=== PATIENT | male | born 1955 | race Caucasian/White ===

== ENCOUNTER 2018-11-19 10:42 | Inpatient (IN) ==
[2018-11-19] MEDS ORDERED: SODIUM CHLORIDE 0.9% 1000ML 1,000 ML IV SCH (11:00)
--- NOTE | 2018-11-19 11:01 | Emergency Department Note ---
Entered by Angela Hickey acting as a scribe for Oseas Valentine DO History of Present Illness General Chief complaint: Abdominal Pain Stated complaint: ABDOMINAL PAIN Source: patient History of Present Illness Onset (ago): hour(s) (last night) Location: abdomen Pain Consistency: + constant Maximum Pain Intensity: 6 Quality: + aching, + sharp and + other (abdominal pain) Associated symptoms: + other (Positive vomiting (3 times). Negative back pain, rectal bleeding, blood in his vomit. ) The patient is a 63 year old male who presents to the Emergency Room with complaints of constant abdominal pain beginning last night. He states after eating a salmon cake last night, he suddenly developed abdominal pain which he describes as an ache and sharp. At 2300 last night, he vomited 3 times. Pt denies any back pain, rectal bleeding, blood in his vomit. Home Medications Home Medications Medication Instructions Recorded Confirmed Type fluorouracil [Efudex] 1 applic TOPICAL BID 11/19/18 11/19/18 History Allergies Allergy/AdvReac Type Severity Reaction Status Date / Time Penicillins Allergy RASH Unverified 11/19/18 11:15 Past Med/Surg History Medical History Asthma Mild; not using any inhalers Family history non-contributory Prediabetes Surgical History H/O colonoscopy Family History Other Family history non-contributory Social History Current Living Situation: Spouse Other Information That Helps Us Care for You: No Feels Safe at Home: Yes Safety Concerns: Feels Safe At This Time Smoking Status: Never smoker Do You Dip or Chew Tobacco: No Hx Alcohol Use: No Hx Substance Use: No Beliefs That Will Affect Care: None Preferred Language: Swedish Communication Ability: Effective Crate Maker Required: No Review of Systems See HPI for pertinent positives & negatives. and A total of 10 systems reviewed and were otherwise negative Physical Exam Vital Signs Vital Signs - 24 hr 11/19/18 10:44 11/19/18 11:18 11/19/18 11:30 Temperature 36.3 C L Temperature Source Oral Sepsis Recent Fever Within 48 Hours No Sepsis Action Taken by Nursing No Action Required Pulse Rate Pulse Rate [Apical] Pulse Rate [Right Finger] 95 H Pulse Rhythm [Apical] Pulse Rhythm [Right Finger] Regular Respiratory Rate 18 20 Respiratory Effort / Characteristics Non-Labored Respiratory Depth Normal Normal Respiratory Pattern Regular Blood Pressure 146/88 H Blood Pressure [Left Arm] 136/86 Blood Pressure Mean 107 Blood Pressure Mean [Left Arm] 102 Blood Pressure Position Sitting Blood Pressure Position [Left Arm] Pulse Oximetry 97 98 100 Oxygen Delivery Method Room Air Room Air Room Air Oxygen Flow Rate 11/19/18 12:30 11/19/18 13:21 11/19/18 14:40 Temperature Temperature Source Sepsis Recent Fever Within 48 Hours Sepsis Action Taken by Nursing Pulse Rate 105 H Pulse Rate [Apical] Pulse Rate [Right Finger] 101 H 102 H Pulse Rhythm [Apical] Pulse Rhythm [Right Finger] Respiratory Rate 18 18 26 H Respiratory Effort / Characteristics Non-Labored Non-Labored Respiratory Depth Normal Normal Respiratory Pattern Regular Blood Pressure 139/89 Blood Pressure [Left Arm] 142/84 H 149/83 H Blood Pressure Mean Blood Pressure Mean [Left Arm] 103 105 Blood Pressure Position Blood Pressure Position [Left Arm] Pulse Oximetry 97 96 97 Oxygen Delivery Method Room Air Room Air Room Air Oxygen Flow Rate 11/19/18 16:23 11/19/18 16:30 11/19/18 16:40 Temperature 36.8 C Temperature Source Temporal Artery Scan Sepsis Recent Fever Within 48 Hours Sepsis Action Taken by Nursing Pulse Rate Pulse Rate [Apical] 96 H 85 90 Pulse Rate [Right Finger] Pulse Rhythm [Apical] Regular Regular Regular Pulse Rhythm [Right Finger] Respiratory Rate 16 14 17 Respiratory Effort / Characteristics Non-Labored Spontaneous Non-Labored Spontaneous Non-Labored Spontaneous Respiratory Depth Normal Normal Normal Respiratory Pattern Regular Regular Regular Blood Pressure Blood Pressure [Left Arm] 153/83 H 151/79 H 139/80 Blood Pressure Mean Blood Pressure Mean [Left Arm] 106 103 99 Blood Pressure Position Blood Pressure Position [Left Arm] Lying Lying Lying Pulse Oximetry 100 100 100 Oxygen Delivery Method Oxymask Oxymask Oxymask Oxygen Flow Rate 5 5 5 11/19/18 16:50 11/19/18 17:05 11/19/18 17:15 Temperature 36.9 C 37.8 C H Temperature Source Oral Oral Sepsis Recent Fever Within 48 Hours Sepsis Action Taken by Nursing Pulse Rate Pulse Rate [Apical] 92 H 94 H Pulse Rate [Right Finger] 103 H Pulse Rhythm [Apical] Regular Regular Pulse Rhythm [Right Finger] Respiratory Rate 16 18 16 Respiratory Effort / Characteristics Non-Labored Spontaneous Non-Labored Spontaneous Non-Labored Spontaneous Respiratory Depth Normal Normal Normal Respiratory Pattern Regular Regular Regular Blood Pressure Blood Pressure [Left Arm] 137/79 145/85 H 130/77 Blood Pressure Mean Blood Pressure Mean [Left Arm] 98 105 94 Blood Pressure Position Blood Pressure Position [Left Arm] Lying Lying Lying Pulse Oximetry 99 98 94 Oxygen Delivery Method Nasal Cannula Nasal Cannula Room Air Oxygen Flow Rate 2 2 11/19/18 17:45 Temperature Temperature Source Sepsis Recent Fever Within 48 Hours Sepsis Action Taken by Nursing Pulse Rate Pulse Rate [Apical] Pulse Rate [Right Finger] 97 H Pulse Rhythm [Apical] Pulse Rhythm [Right Finger] Respiratory Rate 19 Respiratory Effort / Characteristics Respiratory Depth Normal Respiratory Pattern Blood Pressure Blood Pressure [Left Arm] 131/78 Blood Pressure Mean Blood Pressure Mean [Left Arm] 95 Blood Pressure Position Blood Pressure Position [Left Arm] Lying Pulse Oximetry 95 Oxygen Delivery Method Room Air Oxygen Flow Rate GENERAL: Patient is awake alert in no acute distress patient is resting comfortably and showing no signs of anxiety EYES: The conjunctivae are clear. The pupils are round and reactive. EARS, NOSE, MOUTH AND THROAT: The nose is without any evidence of any deformity. Mucous membranes are moist tongue is midline NECK: The neck is nontender and supple. RESPIRATORY: Normal respiratory effort is noted there is no evidence of wheezing rhonchi or rales CARDIOVASCULAR: Regular rate and rhythm noted there no murmurs rubs or gallops normal S1 normal S2 GASTROINTESTINAL: The abdomen is mildly distended. There is right lower quadrant tenderness to palpation. Mild guarding is noted to palpation. No hernias were appreciated. BACK: No midline tenderness or or step-off noted range of motion in flexion extension as well as rotation no signs of muscle spasm noted MUSCULOSKELETAL/EXTREMITIES: There is no evidence of gross deformity full range of motion is noted in the hips and shoulders SKIN: There is no obvious evidence of any rash. There are no petechiae, pallor or cyanosis noted. NEUROLOGIC: Patient is awake alert and oriented x3 strength is symmetric patellar reflexes are 2+ bilaterally Course 1052: Past medical records reviewed. The patient was evaluated in room C11, and a complete history and physical examination were performed. 1220: I checked on the patient at this time and discussed their findings. 1228: I reviewed the patient's case with ABDIAZIZ Farrell working on the service of [facility]. He will evaluate the patient for further management. Consultations Consultation #1: I reviewed the patient's case with ABDIAZIZ Farrell working on the service of [facility]. He will evaluate the patient for further management. Time: 12:28 Administered Medications Ioversol (Optiray 320 125ml) 119 ml IV ONCE PRN PRN Reason: Interaction Checking Stop: 11/23/18 11:37 Last Admin: 11/19/18 11:39 Dose: 119 ml Discontinued Medications Acetaminophen (Ofirmev) Confirm Administered Dose 1,000 mg IV .STK-MED ONE Stop: 11/19/18 17:00 Last Admin: 11/19/18 18:06 Dose: Not Given Bupivacaine HCl (Marcaine 0.5% Mpf) Confirm Administered Dose 30 ml .ROUTE .STK- MED ONE Stop: 11/19/18 14:13 Last Admin: 11/19/18 15:56 Dose: 7 ml Sodium Chloride (Nss 1000ml) 1,000 mls @ 999 mls/hr IV .Q1H1M MATT Stop: 11/19/18 12:00 Last Infusion: 11/19/18 12:25 Dose: 0 mls/hr Admin: 11/19/18 11:24 Dose: 999 mls/hr Cefoxitin Sodium (Mefoxin) 2,000 mg in 60 mls @ 100 mls/hr IV NOW STA Stop: 11/19/18 12:51 Last Infusion: 11/19/18 13:23 Dose: 0 mls/hr Admin: 11/19/18 12:47 Dose: 100 mls/hr Sodium Chloride (Nss 1000ml) 1,000 mls @ 999 mls/hr IV .Q1H1M ONE Stop: 11/19/18 13:27 Last Infusion: 11/19/18 13:51 Dose: 0 mls/hr Admin: 11/19/18 12:47 Dose: 999 mls/hr Acetaminophen (Ofirmev) 1,000 mg in 100 mls @ 400 mls/hr IV NOW ONE Stop: 11/19/18 16:16 Last Infusion: 11/19/18 18:06 Dose: 0 mls/hr Admin: 11/19/18 17:02 Dose: 400 mls/hr Medical Decision Making Differential Diagnosis Differential diagnosis: Etiologies such as appendicitis, diverticulitis, PUD, biliary pathology, UTI, pancreatitis, obstruction, mesenteric ischemia, aortic pathology, infections, inflammatory bowel disease, renal colic, as well as others were entertained. Medical Records Attestation: I reviewed the patient's medical records. Home Medications Current Medication List: was personally reviewed by me Laboratory Data Attestation: I reviewed the patient's lab results. Result diagrams: 11/19/18 11:15 11/19/18 11:15 Lab Results 11/19/18 11/19/18 11/19/18 Range/Units 11:10 11:15 11:15 WBC 12.36 H (4.8-10.8) K/uL RBC 4.84 (4.7-6.1) M/uL Hgb 15.0 (14.0-18.0) g/dL POC Hgb (14.0-18.0) g/dl Hct 42.7 (42-52) % POC Hct (42-52) % MCV 88.2 (80-100) fL MCH 31.0 (25-34) pg MCHC 35.1 (32-36) g/dL RDW Std Deviation 40.0 (36.4-46.3) fL RDW Coeff of Ella 12.4 (11.5-14.5) % Plt Count 262 (130-400) K/uL MPV 9.1 (7.4-10.4) fL Immature Gran % (Auto) 0.2 % Neut % (Auto) 88.9 % Lymph % (Auto) 5.7 % [place] % (Auto) 5.2 % Eos % (Auto) 0.0 % Baso % (Auto) 0.0 % Immature Gran # (Auto) 0.03 H (0.00-0.02) K/uL Neut # (Auto) 10.99 H (1.4-6.5) K/uL Lymph # (Auto) 0.70 L (1.2-3.4) K/uL [place] # (Auto) 0.64 H (0.11-0.59) K/uL Eos # (Auto) 0.00 (0-0.5) K/uL Baso # (Auto) 0.00 (0-0.2) K/uL PT (9.0-12.0) Seconds INR (0.9-1.1) APTT (21.0-31.0) Seconds PTT Ratio POC Sodium (135-144) mEq/L Sodium 132 L (136-145) mmol/L POC Potassium (3.3-5.0) mEq/L Potassium 3.8 (3.5-5.1) mmol/L POC Chloride (101-112) mEq/L Chloride 95 L (98-107) mmol/L Carbon Dioxide 28 (21-32) mmol/L POC Total CO2 (24-31) mEq/l Anion Gap 9.0 (3-11) POC Anion Gap (16-25) mmol/L POC BUN (7-18) mg/dl BUN 17 (7-18) mg/dl Creatinine 1.10 (0.6-1.4) mg/dl POC Creatinine (0.6-1.3) mg/dl Est Cr Clr Drug Dosing 75.4 ml/min Est GFR ( Amer) 82.4 Est GFR (Non-Af Amer) 71.1 BUN/Creatinine Ratio 15.3 (10-20) Glucose 159 H (70-99) mg/dl POC Glucose (70-99) POC Glucose (other) (70-99) mg/dl Calcium 10.0 (8.5-10.1) mg/dl POC Ioniz Calcium Joanna (1.12-1.32) mmol/l Total Bilirubin 0.7 (0.2-1) mg/dl AST 15 (15-37) U/L ALT 30 (12-78) U/L Alkaline Phosphatase 88 (45-117) U/L Troponin I < 0.015 (0-0.045) ng/ml Total Protein 9.4 H (6.4-8.2) gm/dl Albumin 4.7 (3.4-5.0) gm/dl Globulin 4.7 H (2.5-4.0) gm/dl Albumin/Globulin Ratio 1.0 (0.9-2) Lipase 68 L (73-393) U/L Urine Color Urine Appearance (Clear) Urine pH (4.5-7.5) Ur Specific [place] (1.000-1.030) Urine Protein (Negative) Urine Glucose (UA) (Negative) Urine Ketones (Negative) Urine Blood (Negative) Urine Nitrite (Negative) Urine Bilirubin (Negative) Urine Urobilinogen (Negative) Ur Leukocyte Esterase (Negative) Urine WBC (Auto) (0-5) /hpf Urine RBC (Auto) (0-4) /hpf U Hyaline Cast (Auto) (0-5) /lpf U Epithel Cells (Auto) (0-5) /lpf Urine Bacteria (Auto) (Negative) Hepatitis C Ab Screen Neg (Neg) 11/19/18 11/19/18 11/19/18 Range/Units 11:18 11:24 12:05 WBC (4.8-10.8) K/uL RBC (4.7-6.1) M/uL Hgb (14.0-18.0) g/dL POC Hgb 15.3 (14.0-18.0) g/dl Hct (42-52) % POC Hct 45 (42-52) % MCV (80-100) fL MCH (25-34) pg MCHC (32-36) g/dL RDW Std Deviation (36.4-46.3) fL RDW Coeff of Ella (11.5-14.5) % Plt Count (130-400) K/uL MPV (7.4-10.4) fL Immature Gran % (Auto) % Neut % (Auto) % Lymph % (Auto) % [place] % (Auto) % Eos % (Auto) % Baso % (Auto) % Immature Gran # (Auto) (0.00-0.02) K/uL Neut # (Auto) (1.4-6.5) K/uL Lymph # (Auto) (1.2-3.4) K/uL [place] # (Auto) (0.11-0.59) K/uL Eos # (Auto) (0-0.5) K/uL Baso # (Auto) (0-0.2) K/uL PT 10.7 (9.0-12.0) Seconds INR 1.1 (0.9-1.1) APTT 27.1 (21.0-31.0) Seconds PTT Ratio 1.0 POC Sodium 137 (135-144) mEq/L Sodium (136-145) mmol/L POC Potassium 3.9 (3.3-5.0) mEq/L Potassium (3.5-5.1) mmol/L POC Chloride 96 L (101-112) mEq/L Chloride (98-107) mmol/L Carbon Dioxide (21-32) mmol/L POC Total CO2 27 (24-31) mEq/l Anion Gap (3-11) POC Anion Gap 18.0 (16-25) mmol/L POC BUN 17 (7-18) mg/dl BUN (7-18) mg/dl Creatinine (0.6-1.4) mg/dl POC Creatinine 0.9 (0.6-1.3) mg/dl Est Cr Clr Drug Dosing ml/min Est GFR ( Amer) Est GFR (Non-Af Amer) BUN/Creatinine Ratio (10-20) Glucose (70-99) mg/dl POC Glucose (70-99) POC Glucose (other) 169 H (70-99) mg/dl Calcium (8.5-10.1) mg/dl POC Ioniz Calcium Joanna 1.15 (1.12-1.32) mmol/l Total Bilirubin (0.2-1) mg/dl AST (15-37) U/L ALT (12-78) U/L Alkaline Phosphatase (45-117) U/L Troponin I (0-0.045) ng/ml Total Protein (6.4-8.2) gm/dl Albumin (3.4-5.0) gm/dl Globulin (2.5-4.0) gm/dl Albumin/Globulin Ratio (0.9-2) Lipase (73-393) U/L Urine Color Yellow Urine Appearance Clear (Clear) Urine pH 5.5 (4.5-7.5) Ur Specific [place] > 1.045 H (1.000-1.030) Urine Protein 1+ H (Negative) Urine Glucose (UA) Negative (Negative) Urine Ketones 3+ H (Negative) Urine Blood 2+ H (Negative) Urine Nitrite Negative (Negative) Urine Bilirubin Negative (Negative) Urine Urobilinogen Negative (Negative) Ur Leukocyte Esterase Negative (Negative) Urine WBC (Auto) 1-5 (0-5) /hpf Urine RBC (Auto) 5-10 H (0-4) /hpf U Hyaline Cast (Auto) 1-5 (0-5) /lpf U Epithel Cells (Auto) 0-5 (0-5) /lpf Urine Bacteria (Auto) Negative (Negative) Hepatitis C Ab Screen (Neg) 11/19/18 Range/Units 18:30 WBC (4.8-10.8) K/uL RBC (4.7-6.1) M/uL Hgb (14.0-18.0) g/dL POC Hgb (14.0-18.0) g/dl Hct (42-52) % POC Hct (42-52) % MCV (80-100) fL MCH (25-34) pg MCHC (32-36) g/dL RDW Std Deviation (36.4-46.3) fL RDW Coeff of Ella (11.5-14.5) % Plt Count (130-400) K/uL MPV (7.4-10.4) fL Immature Gran % (Auto) % Neut % (Auto) % Lymph % (Auto) % [place] % (Auto) % Eos % (Auto) % Baso % (Auto) % Immature Gran # (Auto) (0.00-0.02) K/uL Neut # (Auto) (1.4-6.5) K/uL Lymph # (Auto) (1.2-3.4) K/uL [place] # (Auto) (0.11-0.59) K/uL Eos # (Auto) (0-0.5) K/uL Baso # (Auto) (0-0.2) K/uL PT (9.0-12.0) Seconds INR (0.9-1.1) APTT (21.0-31.0) Seconds PTT Ratio POC Sodium (135-144) mEq/L Sodium (136-145) mmol/L POC Potassium (3.3-5.0) mEq/L Potassium (3.5-5.1) mmol/L POC Chloride (101-112) mEq/L Chloride (98-107) mmol/L Carbon Dioxide (21-32) mmol/L POC Total CO2 (24-31) mEq/l Anion Gap (3-11) POC Anion Gap (16-25) mmol/L POC BUN (7-18) mg/dl BUN (7-18) mg/dl Creatinine (0.6-1.4) mg/dl POC Creatinine (0.6-1.3) mg/dl Est Cr Clr Drug Dosing ml/min Est GFR ( Amer) Est GFR (Non-Af Amer) BUN/Creatinine Ratio (10-20) Glucose (70-99) mg/dl POC Glucose 186 H (70-99) POC Glucose (other) (70-99) mg/dl Calcium (8.5-10.1) mg/dl POC Ioniz Calcium Joanna (1.12-1.32) mmol/l Total Bilirubin (0.2-1) mg/dl AST (15-37) U/L ALT (12-78) U/L Alkaline Phosphatase (45-117) U/L Troponin I (0-0.045) ng/ml Total Protein (6.4-8.2) gm/dl Albumin (3.4-5.0) gm/dl Globulin (2.5-4.0) gm/dl Albumin/Globulin Ratio (0.9-2) Lipase (73-393) U/L Urine Color Urine Appearance (Clear) Urine pH (4.5-7.5) Ur Specific [place] (1.000-1.030) Urine Protein (Negative) Urine Glucose (UA) (Negative) Urine Ketones (Negative) Urine Blood (Negative) Urine Nitrite (Negative) Urine Bilirubin (Negative) Urine Urobilinogen (Negative) Ur Leukocyte Esterase (Negative) Urine WBC (Auto) (0-5) /hpf Urine RBC (Auto) (0-4) /hpf U Hyaline Cast (Auto) (0-5) /lpf U Epithel Cells (Auto) (0-5) /lpf Urine Bacteria (Auto) (Negative) Hepatitis C Ab Screen (Neg) Imaging Data Radiologist's Impression: Radiology results as stated below per my review and the radiologist's interpretation: ABDOMEN AND PELVIS CT WITH IV CONTRAST CT DOSE: 338.46 mGy.cm HISTORY: Right lower quadrant abdominal pain. TECHNIQUE: Multiaxial CT images of the abdomen and pelvis were performed following the use of intravenous contrast. A dose lowering technique was utilized adhering to the principles of ALARA. COMPARISON STUDY: None. FINDINGS: The lung bases are clear. No pneumoperitoneum. No pneumatosis. No fractures within the visualized osseous structures. No hepatic or splenic masses. The adrenal glands, pancreas, and kidneys are unremarkable. No ureteral stones. No hydronephrosis. The bladder is not well-distended. No retroperitoneal lymphadenopathy. Normal caliber abdominal aorta. The gallbladder is mildly distended. Trace pericholecystic fluid. Mild bladder wall thickening is likely due to underdistention. No bowel wall thickening or obstruction. Normal appendix. IMPRESSION: 1. Distended gallbladder with trace pericholecystic fluid. This is nonspecific but could represent acute cholecystitis or underlying hepatic pathology. Clinical correlation recommended as well as correlation with LFTs. 2. No bowel wall thickening or obstruction. 3. Normal appendix. 4. Mild bladder wall thickening. This is likely due to underdistention. Recommend correlation with urinalysis. Electronically signed by: Ethan Pascal M.D. 11/19/2018 12:13 PM XR chest 1V portable HISTORY: Generalized abdominal pain COMPARISON: None. FINDINGS: The lungs are clear. Cardiac silhouette is normal in size. No pleural effusions. No pneumothorax. IMPRESSION: No acute process. Electronically signed by: Ethan Pascal M.D. 11/19/2018 11:41 AM ECG Data Attestation: I personally reviewed and interpreted this ECG as follows: Indication: abdominal pain Rate (beats per minute): 86 Rhythm: normal sinus Findings: + other (inferior ST abnormalities); no ectopy Comparison ECG Date: no prior available Blood Pressure Blood Pressure Findings: Elevated blood pressure Blood Pressure Disposition: elevated BP felt to be situational MDM Narrative The patient is a 63-year-old male who presented to the emergency department with abdominal pain. The patient complained mostly of upper abdominal pain but on physical exam appear to be right lower quadrant. The patient's pain began after eating food. I discussed the patient's laboratory and radiographic studies with him. He did not wish to have any pain medication but was treated with IV fluids and IV antibiotics. Radiographic studies did reveal signs of cholecystitis. The patient's white blood cell count was elevated. For this reason I discussed his case with the on-call [facility] hospitalist group. They have agreed to evaluate the patient in the emergency department for further management and disposition. Impression & Plan Cholecystitis Discharge Plan Visit Data *Final* Discharge Date/Time: 11/19/18 14:40 Chief Complaint: Abdominal Pain Stated Complaint: ABDOMINAL PAIN ED Provider: Oseas Valentine Discharge Problem: Cholecystitis Patient Disposition: Still a Patient Discharge Instructions Interventions: ED Discharge Assessment Last Done: 11/19/18 14:40 The scribe's documentation has been prepared under my direction and personally reviewed by me in its entirety. I confirm that the note above accurately reflects all work, treatment, procedures, and medical decision making performed by me.
[2018-11-19 11:27] LABS: Hematocrit (blood only) 42.7 % (42-52); Immature Granulocytes # (auto) 0.03 K/uL (0.00-0.02); Immature Granulocytes % (auto) 0.2 %; Lymphocytes % (auto) 5.7 %; Mean Corpuscular Hgb Conc 35.1 g/dL (32-36); Mean Corpuscular Volume 88.2 fL (80-100); Mean Platelet Volume 9.1 fL (7.4-10.4); Monocytes # (auto) 0.64 K/uL (0.11-0.59); Monocytes % (auto) 5.2 %; Neutrophils # (auto) 10.99 K/uL (1.4-6.5); Neutrophils % (auto) 88.9 %; Platelet Count 262 K/uL (130-400); RDW Coefficient of Variation 12.4 % (11.5-14.5); Red Blood Count 4.84 M/uL (4.7-6.1); White Blood Count 12.36 K/uL (4.8-10.8)
[2018-11-19 11:36] LABS: iSTAT Hemoglobin 15.3 g/dl (14.0-18.0); iSTAT Ionized Calcium 1.15 mmol/l (1.12-1.32)
[2018-11-19] MEDS ORDERED: OPTIRAY 320 125ml IV PRN (11:38)
--- NOTE | 2018-11-19 11:43 | XRay Report ---
XR chest 1V portable HISTORY: Generalized abdominal pain COMPARISON: None. FINDINGS: The lungs are clear. Cardiac silhouette is normal in size. No pleural effusions. No pneumot horax. IMPRESSION: No acute process. Electronically signed by: Ethan Pascal M.D. 11/19/2018 11:41 AM
[2018-11-19 11:47] LABS: Alanine Aminotransferase 30 U/L (12-78); Albumin Level 4.7 gm/dl (3.4-5.0); Aspartate Aminotransferase 15 U/L (15-37); BUN Creatinine Ratio 15.3 (10-20); Blood Urea Nitrogen 17 mg/dl (7-18); Carbon Dioxide 28 mmol/L (21-32); Chloride 95 mmol/L (98-107); Creatinine Clr Calc Pharmacy 75.4 ml/min; Est GFR (African American) 82.4; Est GFR (Non-African American) 71.1; Glucose 159 mg/dl (70-99); Potassium 3.8 mmol/L (3.5-5.1); Sodium 132 mmol/L (136-145)
[2018-11-19 11:52] LABS: Alkaline Phosphatase 88 U/L (45-117); Bilirubin,Total 0.7 mg/dl (0.2-1); Globulin 4.7 gm/dl (2.5-4.0); Total Protein 9.4 gm/dl (6.4-8.2); Troponin I < 0.015 ng/ml (0-0.045)
--- NOTE | 2018-11-19 12:15 | CT Scan Report ---
ABDOMEN AND PELVIS CT WITH IV CONTRAST CT DOSE: 338.46 mGy.cm HISTORY: Right lower quadrant abdominal pain. TECHNIQUE: Multiaxial CT images of the abdomen and pelvis were performed following the use of intrave nous contrast. A dose lowering technique was utilized adhering to the principles of ALARA. COMPARISON STUDY: None. FINDINGS: The lung bases are clear. No pneumoperitoneum. No pneumatosis. No fractures within the visu alized osseous structures. No hepatic or splenic masses. The adrenal glands, pancreas, and kidneys ar e unremarkable. No ureteral stones. No hydronephrosis. The bladder is not well-distended. No retroper itoneal lymphadenopathy. Normal caliber abdominal aorta. The gallbladder is mildly distended. Trace p ericholecystic fluid. Mild bladder wall thickening is likely due to underdistention. No bowel wall th ickening or obstruction. Normal appendix. IMPRESSION: 1. Distended gallbladder with trace pericholecystic fluid. This is nonspecific but could represent ac [place] cholecystitis or underlying hepatic pathology. Clinical correlation recommended as well as correl ation with LFTs. 2. No bowel wall thickening or obstruction. 3. Normal appendix. 4. Mild bladder wall thickening. This is likely due to underdistention. Recommend correlation with ur inalysis. Electronically signed by: Ethan Pascal M.D. 11/19/2018 12:13 PM
[2018-11-19] MEDS ORDERED: cefOXitin 2,000 MG/60 ML BAG IV STA (12:16)
[2018-11-19 12:23] LABS: Appearance Urine Clear (Clear); Bacteria Urine Automated Negative (Negative); Bilirubin Urine Negative (Negative); Color Urine Yellow; Epithelial Cell Urine Auto 0-5 /lpf (0-5); Glucose Urine UA Negative (Negative); Leukocyte Esterase Urine Negative (Negative); Nitrite Urine Negative (Negative); Protein Urine 1+ (Negative); Specific Gravity Urine > 1.045 (1.000-1.030); Urobilinogen Urine Negative (Negative); pH Urine 5.5 (4.5-7.5)
[2018-11-19 12:25] LABS: Ketones Urine 3+ (Negative)
[2018-11-19] MEDS ORDERED: SODIUM CHLORIDE 0.9% 1000ML 1,000 ML IV ONE (12:27)
--- NOTE | 2018-11-19 14:03 | History & Physical Report ---
Date of Service November 19, 2018 Assessment & Plan (1) Epigastric pain: Patient presented with epigastric pain since midnight last night One episode of nausea and vomiting last night with no evidence of hematemesis No hematochezia, melena Most likely secondary to acute cholecystitis -see below (2) Cholecystitis: General surgery consulted -I spoke with Dr. Marshall who will evaluate the patient Keep the patient n.p.o. for now Start ciprofloxacin and Flagyl IV Repeat labs daily (3) Hyperglycemia: Patient has ketones and trace blood in his urine BSG is elevated at 159 Patient reports history of prediabetes with no insulin or oral control prescribed Check a hemoglobin A1c Initiate NovoLog sliding scale insulin Follow BSG's before meals at bedtime We will not start basal insulin at this time as patient will be n.p.o. for consideration of acute cholecystectomy (4) DVT prophylaxis: No chemical prophylaxis at this time as patient most likely will be considered for cholecystectomy Teds SCDs I spoke with Dr. Pete regarding this patient. Please refer to his addendum for further recommendations. History of Present Illness Chief Complaint: Epigastric pain since midnight last night Primary Care Provider: Casey Richardson Attending: Dr. Pete This is a 63-year-old male who follows with Dr. Fleming who has no significant past medical history. He was a one-time diagnosed with prediabetes but this is been diet controlled and he takes no medication for this at all. 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 He has no pulmonary or cardiac history. He has no prior hospitalizations. He does have a history of melanoma which is followed by dermatology and is currently in remission. He is a lifelong non-smoker and consumes no alcohol. The patient reports that he had epigastric pain last night around midnight. He had one episode of nausea and vomiting which was self-limited. This morning the pain persisted so he had his nephew drive him to the emergency department. CT scan of the abdomen and pelvis shows an acute cholecystitis and stool throughout the colon. Patient does report that he has a bowel movement at least daily around 9 or 930 each morning without any bowel regimen. He often will have a second bowel movement later in the day. He has never had bowel obstruction or other comorbid disease. He has no other acute complaints today other than abdominal pain. Blood pressure is slightly elevated with systolic pressure of 140 and heart rate is slightly elevated at 103. This is most likely secondary to pain as blood pressure is typically around 111 systolically at the doctor's office. Patient has no chest pain or shortness of breath and no other problems. Allergies Allergy/AdvReac Type Severity Reaction Status Date / Time Penicillins Allergy RASH Unverified 11/19/18 11:15 Home Medications Home Medications Medication Instructions Recorded Confirmed Type fluorouracil [Efudex] 1 applic TOPICAL BID 11/19/18 11/19/18 History Past Med/Surg History Medical History Asthma Mild; not using any inhalers Family history non-contributory Prediabetes Surgical History H/O colonoscopy Family History Other Family history non-contributory Social History Current Living Situation: Spouse Other Information That Helps Us Care for You: No Feels Safe at Home: Yes Safety Concerns: Feels Safe At This Time Smoking Status: Never smoker Do You Dip or Chew Tobacco: No Hx Alcohol Use: No Hx Substance Use: No Beliefs That Will Affect Care: None Preferred Language: Frisian Communication Ability: Effective Line 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 Pupils equal and reactive to light NOSE: No evidence of epistaxis MOUTH: No lesions or candidiasis NECK: Supple. LUNGS: CTA B/L, no wheezes, rales or rhonchi HEART: Regular, rate controlled. No appreciation of murmur or ectopy. ABDOMEN: Soft, ND, BS Present. Rebound tenderness particularly in the right upper quadrant. EXTREMITIES: No LE edema, pedal pulses intact NEURO: A&OX3 Results & Data Laboratory Results 11/19/18 11/19/18 11/19/18 11:15 11:15 11:24 WBC 12.36 H RBC 4.84 Hgb 15.0 POC Hgb 15.3 Hct 42.7 POC Hct 45 MCV 88.2 MCH 31.0 MCHC 35.1 RDW Std Deviation 40.0 RDW Coeff of Ella 12.4 Plt Count 262 MPV 9.1 Immature Gran % (Auto) 0.2 Neut % (Auto) 88.9 Lymph % (Auto) 5.7 Freestone % (Auto) 5.2 Eos % (Auto) 0.0 Baso % (Auto) 0.0 Immature Gran # (Auto) 0.03 H Neut # (Auto) 10.99 H Lymph # (Auto) 0.70 L Freestone # (Auto) 0.64 H Eos # (Auto) 0.00 Baso # (Auto) 0.00 POC Sodium 137 Sodium 132 L POC Potassium 3.9 Potassium 3.8 POC Chloride 96 L Chloride 95 L Carbon Dioxide 28 POC Total CO2 27 Anion Gap 9.0 POC Anion Gap 18.0 POC BUN 17 BUN 17 Creatinine 1.10 POC Creatinine 0.9 Est Cr Clr Drug Dosing 75.4 Est GFR ( Amer) 82.4 Est GFR (Non-Af Amer) 71.1 BUN/Creatinine Ratio 15.3 Glucose 159 H POC Glucose (other) 169 H Calcium 10.0 POC Ioniz Calcium Joanna 1.15 Total Bilirubin 0.7 AST 15 ALT 30 Alkaline Phosphatase 88 Troponin I < 0.015 Total Protein 9.4 H Albumin 4.7 Globulin 4.7 H Albumin/Globulin Ratio 1.0 Lipase 68 L Urine Color Urine Appearance Urine pH Ur Specific Newton Urine Protein Urine Glucose (UA) Urine Ketones Urine Blood Urine Nitrite Urine Bilirubin Urine Urobilinogen Ur Leukocyte Esterase Urine WBC (Auto) Urine RBC (Auto) U Hyaline Cast (Auto) U Epithel Cells (Auto) Urine Bacteria (Auto) 11/19/18 12:05 WBC RBC Hgb POC Hgb Hct POC Hct MCV MCH MCHC RDW Std Deviation RDW Coeff of Ella Plt Count MPV Immature Gran % (Auto) Neut % (Auto) Lymph % (Auto) Freestone % (Auto) Eos % (Auto) Baso % (Auto) Immature Gran # (Auto) Neut # (Auto) Lymph # (Auto) Freestone # (Auto) Eos # (Auto) Baso # (Auto) POC Sodium Sodium POC Potassium Potassium POC Chloride Chloride Carbon Dioxide POC Total CO2 Anion Gap POC Anion Gap POC BUN BUN Creatinine POC Creatinine Est Cr Clr Drug Dosing Est GFR ( Amer) Est GFR (Non-Af Amer) BUN/Creatinine Ratio Glucose POC Glucose (other) Calcium POC Ioniz Calcium Joanna Total Bilirubin AST ALT Alkaline Phosphatase Troponin I Total Protein Albumin Globulin Albumin/Globulin Ratio Lipase Urine Color Yellow Urine Appearance Clear Urine pH 5.5 Ur Specific Newton > 1.045 H Urine Protein 1+ H Urine Glucose (UA) Negative Urine Ketones 3+ H Urine Blood 2+ H Urine Nitrite Negative Urine Bilirubin Negative Urine Urobilinogen Negative Ur Leukocyte Esterase Negative Urine WBC (Auto) 1-5 Urine RBC (Auto) 5-10 H U Hyaline Cast (Auto) 1-5 U Epithel Cells (Auto) 0-5 Urine Bacteria (Auto) Negative Diagnostic Findings ABDOMEN AND PELVIS CT WITH IV CONTRAST CT DOSE: 338.46 mGy.cm HISTORY: Right lower quadrant abdominal pain. TECHNIQUE: Multiaxial CT images of the abdomen and pelvis were performed following the use of intravenous contrast. A dose lowering technique was utilized adhering to the principles of ALARA. COMPARISON STUDY: None. FINDINGS: The lung bases are clear. No pneumoperitoneum. No pneumatosis. No fractures within the visualized osseous structures. No hepatic or splenic masses. The adrenal glands, pancreas, and kidneys are unremarkable. No ureteral stones. No hydronephrosis. The bladder is not well-distended. No retroperitoneal lymphadenopathy. Normal caliber abdominal aorta. The gallbladder is mildly distended. Trace pericholecystic fluid. Mild bladder wall thickening is likely due to underdistention. No bowel wall thickening or obstruction. Normal appendix. IMPRESSION: 1. Distended gallbladder with trace pericholecystic fluid. This is nonspecific but could represent acute cholecystitis or underlying hepatic pathology. Clinical correlation recommended as well as correlation with LFTs. 2. No bowel wall thickening or obstruction. 3. Normal appendix. 4. Mild bladder wall thickening. This is likely due to underdistention. Recommend correlation with urinalysis. Electronically signed by: Ethan Pascal M.D. 11/19/2018 12:13 PM Code Status & VTE Plan Code Status Full code level 1 VTE Prophylaxis Plan VTE Prophylaxis will be ordered: Yes Critical Care Time Critical Care Time: No Supervising Physician Co-Signing Physician Notes Attending Note: Patient is a 63 yr male with no significant PMH presents with history of epigastirc abdominal pain, nausea, vomiting since [address] abd is suggestive of acute cholecystitis. Surgery evaluated the patient while in ED and is planned for cholecytectomy today. On Exam patient has RUQ tenderness, lungs CTA, S1, S2, +tachycardia, no murmur, no pedal edema. Patient will be kept NPO for surgery. Pain control. Started on IV abx., IV fluids. Surgery is consulted. I personally reviewed the record. Patient is interviewed and examined at bedside. Patient's care is coordinated with Napoleon Chao PA-C. Please refer to the documentation above for details of patient's presentation and for discussion of other issues.
--- NOTE | 2018-11-19 14:10 | Anesthesiology Consultation ---
Date of Service November 19, 2018 Assessment & Plan (1) Encounter for pre-operative examination: Chart Review Chart Review: Acceptable Risk for Surgery and Patient NOT seen in Pre Admission Testing Consults Requested none ASA [id number] Proposed Anesthesia Anesthesia Type: General Risk / Benefits Reviewed With: PT / POA / Parent / Guardian, Accepts Plan and Informed Consent Obtained NPO Date Last Intake of Fluids: 11/19/18 Time Last Intake of Fluids: 08:00 Date Last Intake of Solids: 11/18/18 Time Last Intake of Solids: 19:00 History Surgery Operation Date: 11/19/18 14:30 Proposed Procedures p Laparoscopic Cholecystectomy - Ramses Marshall MD, FACS Height/Weight Height: 1.83 m Weight: 79.6 kg Allergies Allergy/AdvReac Type Severity Reaction Status Date / Time Penicillins Allergy RASH Unverified 11/19/18 11:15 Medications Home Medications Medication Instructions Recorded Confirmed Last Taken fluorouracil [Efudex] 1 applic TOPICAL BID 11/19/18 11/19/18 11/18/18 Active Medications Generic Name Dose Route Start Last Admin Trade Name Freq PRN Reason Stop Dose Admin Ioversol 119 ml 11/19/18 11:38 11/19/18 11:39 Optiray 320 125ml IV 11/23/18 11:37 119 ml ONCE PRN Administration Interaction Checking Past Medical History Medical History Asthma Mild; not using any inhalers Family history non-contributory Prediabetes Denies having any recent CP, SOB, GERD symptoms. Has had some n/v with current problem Past Family History Family History Other Family history non-contributory Past Surgical History Surgical History H/O colonoscopy Past Anesthesia History No Family Hx of Anesthesia Complications History of PONV No Motion Sickness Screening History of Motion Sickness: No Social History Smoking Status: Never smoker Do You Dip or Chew Tobacco: No Hx Alcohol Use: No Hx Substance Use: No Exercise / Class Metabolic Activity II 4-5 Yardwork/Stairs/Walk up hill Physical Exam Vital Signs Last Vital Signs Temp 36.3 C L 11/19/18 10:44 Pulse 105 H 11/19/18 14:40 Resp 26 H 11/19/18 14:40 BP 139/89 11/19/18 14:40 Pulse Ox 97 11/19/18 14:40 ENMT Mouth: no TMJ abnormality and no TMJ clicking Thyromental Distance: > or= 3.5 Finger Breadths Mallampati Class: II Neck normal visual inspection; neck extension not limited Respiratory Auscultation: lungs clear to auscultation bilaterally Cardiovascular Rate/Rhythm: regular rate and regular rhythm Psychiatric Orientation: alert and oriented x 3 Testing Electrocardiogram Date: 11/19/18 Findings: + NSR @ (86) Sinus rhythm with marked sinus arrhythmia Otherwise normal ECG No previous ECGs available Chest X-Ray Date: 11/19/18 Findings: + NAD Laboratory Results 11/19/18 11:15 11/19/18 11:15 Urine Color Yellow 11/19/18 12:05 Urine Appearance Clear (Clear) 11/19/18 12:05 Urine pH 5.5 (4.5-7.5) 11/19/18 12:05 Ur Specific Wing > 1.045 (1.000-1.030) H 11/19/18 12:05 Urine Protein 1+ (Negative) H 11/19/18 12:05 Urine Glucose (UA) Negative (Negative) 11/19/18 12:05 Urine Ketones 3+ (Negative) H 11/19/18 12:05 Urine Nitrite Negative (Negative) 11/19/18 12:05 Ur Leukocyte Esterase Negative (Negative) 11/19/18 12:05 Urine WBC (Auto) 1-5 /hpf (0-5) 11/19/18 12:05 Urine RBC (Auto) 5-10 /hpf (0-4) H 11/19/18 12:05 U Hyaline Cast (Auto) 1-5 /lpf (0-5) 11/19/18 12:05 U Epithel Cells (Auto) 0-5 /lpf (0-5) 11/19/18 12:05 Urine Bacteria (Auto) Negative (Negative) 11/19/18 12:05 11/19/18 11:24 POC Glucose (other) 169 H
[2018-11-19] MEDS ORDERED: BUPIVACAINE 0.5 % 5 MG/1 ML MPF 30ML VIAL ONE (14:12)
[2018-11-19] MEDS ORDERED: GLYCOPYRROLATE 0.2 MG/ML VIAL ONE ×2 (14:13→15:31)
[2018-11-19] MEDS ORDERED: fentaNYL citrate 100 MCG/2 ML VIAL ONE (14:13)
[2018-11-19] MEDS ORDERED: NEOSTIGMINE METHYLSULFATE 5 MG/5 ML SYR ONE ×2 (14:13→15:31)
[2018-11-19] MEDS ORDERED: LIDOCAINE HCL 2% 2 ML VIAL/AMP(20MG/ML) INFIL ONE (14:13)
[2018-11-19] MEDS ORDERED: MIDAZOLAM HCL 1 MG/ML 2ML VIAL ONE (14:13)
[2018-11-19] MEDS ORDERED: DEXAMETHASONE SOD INJ 4 MG/ML VIAL ONE ×2 (14:13→15:23)
[2018-11-19] MEDS ORDERED: ePHEDrine sulfate 50 MG/ML AMP ONE (14:13)
[2018-11-19] MEDS ORDERED: SUCCINYLCHOLINE CHLORIDE 20 MG/ML 10 ML VIAL ONE (14:13)
[2018-11-19] MEDS ORDERED: ONDANSETRON INJ 2 MG/ML 2 ML VIAL ONE ×2 (14:13→15:31)
[2018-11-19] MEDS ORDERED: PHENYLEPHRINE HCL 10 MG/ML VIAL ONE (14:13)
[2018-11-19] MEDS ORDERED: PROPOFOL IV EMULSION 10 MG/ML 20 ML VIAL IV ONE (14:13)
[2018-11-19] MEDS ORDERED: ROCURONIUM BROMIDE 10 MG/ML 5 ML VIAL ONE (14:26)
--- NOTE | 2018-11-19 14:29 | Surgery Consultation ---
Date of Consultation November 19, 2018 Assessment & Plan (1) Epigastric pain: 63-year-old male with epigastric pain beginning at midnight. CT scan reveals distended gallbladder with trace pericholecystic fluid, possible acute cholecystitis. Patient seen and examined with Dr. Marshall in ED. Recommend cholecystectomy in OR today. Risks of surgery reviewed with patient. Patient wishes to proceed with Laparoscopic Cholecystectomy, Possible Open Cholecystectomy. Patient NPO. Patient admitted to hospitalist service. History of Present Illness Reason for Consultation: Acute Cholecystitis History of Present Illness Mr. Stack is a 63-year-old male who presents to the [facility] ED for evaluation of epigastric abdominal pain. Patient reports that the pain began around midnight. Denies ever having pain like this before. Patient reports that he has been nauseous and reports one episode of vomiting. Patient denies previous surgery. Denies any cardiac or pulmonary issues. Allergies Allergy/AdvReac Type Severity Reaction Status Date / Time Penicillins Allergy RASH Unverified 11/19/18 11:15 Home Medications Home Medications Medication Instructions Recorded Confirmed Type fluorouracil [Efudex] 1 applic TOPICAL BID 11/19/18 11/19/18 History Patient History Medical History Family history non-contributory Prediabetes Family History Other Family history non-contributory Social History Current Living Situation: Spouse Other Information That Helps Us Care for You: No Feels Safe at Home: Yes Safety Concerns: Feels Safe At This Time Smoking Status: Never smoker Do You Dip or Chew Tobacco: No Hx Alcohol Use: No Hx Substance Use: No Beliefs That Will Affect Care: None Preferred Language: Hungarian Communication Ability: Effective Biological Aide Required: No Physical Exam 2 Vital Signs (Past 24 Hours): Last Vital Signs Temp 36.3 C L 11/19/18 10:44 Pulse 102 H 11/19/18 13:21 Resp 18 11/19/18 13:21 BP 149/83 H 11/19/18 13:21 Pulse Ox 96 11/19/18 13:21 Gastrointestinal (Abdomen): Percussion/Palpation: + abdomen tender (right upper quadrant. ) and abdomen soft
[2018-11-19] MEDS ORDERED: ePHEDrine sulfate 50 MG/ML AMP IV PRN (14:57)
[2018-11-19] MEDS ORDERED: ATROPINE SULFATE 0.1 MG/ML 10ML SYR IV PRN (14:57)
[2018-11-19] MEDS ORDERED: HYDROmorphone INJ 1 MG/ML SYRINGE IV PRN ×2 (14:57→17:28)
[2018-11-19] MEDS ORDERED: ONDANSETRON INJ 2 MG/ML 2 ML VIAL IV PRN ×3 (14:57→17:28)
[2018-11-19] MEDS ORDERED: PHENYLEPHRINE 100MCG/ML 5ML SYR IV PRN (14:57)
[2018-11-19] MEDS ORDERED: PROMETHAZINE HCL 12.5 MG in SODIUM CHLORIDE 0.9% 50 ML IV PRN ×2 (14:57→17:28)
[2018-11-19] MEDS ORDERED: fentaNYL citrate 100 MCG/2 ML VIAL IV PRN (14:57)
--- NOTE | 2018-11-19 16:01 | Operative Report ---
Post Operative Report Pre & Post Diagnosis Operation Date: 11/19/18 14:30 Pre-Op Diagnosis: Acute Cholecystitis Post-Op Diagnosis: Acute Cholecystitis same w/ gangrene and hydrops Procedure Operation Date: 11/19/18 14:30 Actual Procedures p Laparoscopic Cholecystectomy(Not Applicable) - Ramses Marshall MD, FACS Surgeon Ramses Marshall MD, FACS Arc Welder Apprentice Vika Mix Estimated Blood Loss 10 Findings Consistent with Post-Op Diagnosis Specimens gallbladder Description of Procedure see dictated note pt had bilious ascites I attest to the content of the Intraoperative Record and any orders documented therein. Any exceptions are noted below.
[2018-11-19] MEDS ORDERED: ACETAMINOPHEN 1,000 MG/100 ML VIAL IV ONE (16:02)
--- NOTE | 2018-11-19 16:57 | Anesthesiology Progress Note ---
Date of Service November 19, 2018 Anesthesia Post Procedure Vital Signs Vital Signs: Temp Pulse Pulse Pulse Resp BP BP 11/19/18 16:49 36.9 C 92 H 16 137/79 11/19/18 16:40 90 17 139/80 11/19/18 16:30 85 14 151/79 H 11/19/18 16:23 36.8 C 96 H 16 153/83 H 11/19/18 14:40 105 H 26 H 139/89 11/19/18 13:21 102 H 18 149/83 H 11/19/18 12:30 101 H 18 142/84 H 11/19/18 11:30 95 H 20 136/86 11/19/18 11:18 11/19/18 10:44 36.3 C L 18 146/88 H Pulse Ox 11/19/18 16:49 99 11/19/18 16:40 100 11/19/18 16:30 100 11/19/18 16:23 100 11/19/18 14:40 97 11/19/18 13:21 96 11/19/18 12:30 97 11/19/18 11:30 100 11/19/18 11:18 98 11/19/18 10:44 97 Pain Intensity Bilateral Upper Abdomen: Pain Intensity: 7 Notes Mental Status: alert / awake / arousable Patient Amnestic to Procedure: Yes Nausea / Vomiting: adequately controlled Pain: adequately controlled Airway Patency, RR, SpO2: stable & adequate BP & HR: stable & adequate Hydration State: stable & adequate Anesthetic Complications: no major complications apparent
[2018-11-19] MEDS ORDERED: ACETAMINOPHEN 1000 MG/100 ML IV IV ONE (16:59)
[2018-11-19] MEDS ORDERED: GLUCOSE 10 TABS/TUBE PO PRN (17:28)
[2018-11-19] MEDS ORDERED: ALUMINUM/MAGNESIUM SUSP 30 ML UDC PO PRN (17:28)
[2018-11-19] MEDS ORDERED: HYDROmorphone INJ 0.5 MG/0.5 ML SYR IV PRN (17:28)
[2018-11-19] MEDS ORDERED: ACETAMINOPHEN 325 MG TAB PO PRN (17:28)
[2018-11-19] MEDS ORDERED: DEXTROSE 50% 50 ML SYRINGE IV PRN (17:28)
[2018-11-19] MEDS ORDERED: GLUCAGON FOR INJ 1 MG VIAL SQ PRN (17:28)
[2018-11-19] MEDS ORDERED: MAGNESIUM HYDROXIDE SUSP 30 ML UDC PO PRN (17:28)
[2018-11-19] MEDS ORDERED: GLUCOSE 40% GEL 15 GM TUBE PO PRN (17:28)
[2018-11-19] MEDS ORDERED: IBUPROFEN 600 MG TAB PO PRN (17:28)
[2018-11-19] MEDS ORDERED: CARBOHYDRATES FOR HYPOGLYCEMIA PO PRN (17:28)
[2018-11-19] MEDS ORDERED: HYDROCODONE/ACETAMOPHEN 5/325MG TAB PO PRN ×2 (17:28)
[2018-11-19] MEDS ORDERED: POLYETHYLENE (MIRALAX) 17 GM PACK PO PRN (17:28)
[2018-11-19 18:03] LABS: INR 1.1 (0.9-1.1); Partial Thromboplastin Time 27.1 Seconds (21.0-31.0); Prothrombin Time 10.7 Seconds (9.0-12.0)
[2018-11-19] MEDS: SODIUM CHLORIDE 0.9% 1000ML 1,000 ML IV SCH (19:29)
[2018-11-19] MEDS: INSULIN ASPART 100 UNITS/ML 3 ML PEN SC SCH ×2 (19:33→21:48)
--- NOTE | 2018-11-19 20:25 | Operative Report ---
DATE OF OPERATION: 11/19/2018 NAME OF OPERATION: Laparoscopic cholecystectomy. PREOPERATIVE DIAGNOSIS: Acute cholecystitis. POSTOPERATIVE DIAGNOSES: Acute cholecystitis with gangrenous cholecystitis and hydrops of the gallbladder. OTHER FINDINGS: The patient had bilious ascites. STAFF SURGEON: Ramses Marshall MD FACSIMILE MACHINE OPERATOR: Falguni Mix PA-C ANESTHESIA: General. DESCRIPTION OF PROCEDURE: The patient was brought in the Operating Room and placed on the operating table in supine position. His abdomen was prepped and draped in usual fashion. Pneumatic stockings and orogastric tube were placed. My research assistant member did help with prepping, draping, removal of the gallbladder and closure of the wounds. Initially, an incision was made above the umbilicus anesthetizing all incisions using 0.5% plain Marcaine. Dissection was carried down to the fascia, placing a Veress needle, producing pneumoperitoneum. An 11 mm port was placed at this level and then under visualization, three 5 mm ports placed, 1 cephalad and 2 laterally. The patient's gallbladder was severely distended. There were gangrenous patches in the gallbladder. There was bilious ascites. It was aspirated of bile which was clear, indicating hydrops. The gallbladder was severely thickened and edematous. It was retracted. Dissection carried out at the zachary hepatis, identifying the cystic duct and cystic artery. These were clipped and transected. The gallbladder then dissected away from the liver bed showing severe edema and fluid in the posterior wall. Gallbladder was placed in an Endobag. After appropriate hemostasis and irrigation, the Endobag was removed through the umbilical site. I did have to increase the size of the fascial defect and skin to remove the large gallbladder. Fascia at the umbilicus was closed using interrupted 0 PDS suture. Skin was reapproximated using subcuticular 4-0 Monocryl and Dermabond. The patient was transferred to Recovery Room in a stable condition. I attest to the content of the Intraoperative Record and any orders documented therein. Any exception s are noted below.
[2018-11-19] MEDS: DOCUSATE SODIUM/SENNA 50/8.6MG TAB PO SCH (21:48)
[2018-11-20 06:16] LABS: Basophils # (auto) 0.02 K/uL (0-0.2); Basophils % (auto) 0.2 %; Eosinophils # (auto) 0.01 K/uL (0-0.5); Eosinophils % (auto) 0.1 %; Hematocrit (blood only) 36.3 % (42-52); Immature Granulocytes # (auto) 0.03 K/uL (0.00-0.02); Immature Granulocytes % (auto) 0.3 %; Lymphocytes % (auto) 18.8 %; Mean Corpuscular Hgb Conc 33.1 g/dL (32-36); Mean Corpuscular Volume 91.4 fL (80-100); Mean Platelet Volume 9.2 fL (7.4-10.4); Monocytes # (auto) 0.66 K/uL (0.11-0.59); Monocytes % (auto) 6.5 %; Neutrophils # (auto) 7.49 K/uL (1.4-6.5); Neutrophils % (auto) 74.1 %; Platelet Count 209 K/uL (130-400); RDW Standard Deviation 43.3 fL (36.4-46.3); Red Blood Count 3.97 M/uL (4.7-6.1); White Blood Count 10.11 K/uL (4.8-10.8)
[2018-11-20 06:27] LABS: Albumin Level 3.2 gm/dl (3.4-5.0); BUN Creatinine Ratio 13.3 (10-20); Bilirubin Direct 0.2 mg/dl (0-0.2); Creatinine Clr Calc Pharmacy 84.7 ml/min; Est GFR (African American) 94.7; Est GFR (Non-African American) 81.7; Potassium 4.2 mmol/L (3.5-5.1)
[2018-11-20 06:29] LABS: Albumin Globulin Ratio 0.8 (0.9-2); Bilirubin,Total 0.7 mg/dl (0.2-1); Globulin 3.9 gm/dl (2.5-4.0); Phosphorus 3.5 mg/dl (2.5-4.9); Total Protein 7.1 gm/dl (6.4-8.2)
--- NOTE | 2018-11-20 06:42 | Progress Note ---
Date of Service November 20, 2018 Assessment & Plan (1) Gangrenous cholecystitis: seems to be doing ok- cont IV atbx walk in hallway, check labs, cont IV fluid for now Subjective awake, alert, less pain vitals stable Physical Exam 2 Vital Signs (Past 24 Hours): Last Vital Signs Temp 37.2 C 11/20/18 02:16 Pulse 66 11/20/18 02:16 Resp 16 11/20/18 02:16 BP 108/71 11/20/18 02:16 Pulse Ox 96 11/20/18 02:16 abd - soft
[2018-11-20 07:24] LABS: Estimated Average Glucose 143 mg/dl
--- NOTE | 2018-11-20 08:47 | Anesthesiology Progress Note ---
Date of Service November 20, 2018 Anesthesia Post Procedure Vital Signs Vital Signs: Temp Pulse Pulse Pulse Resp BP BP 11/20/18 07:44 36.6 C 58 L 18 103/68 11/20/18 02:16 37.2 C 66 16 108/71 11/19/18 23:08 36.6 C 82 16 98/58 L 11/19/18 20:35 36.4 C L 93 H 19 124/82 11/19/18 19:15 37.2 C 91 H 16 125/78 11/19/18 17:45 97 H 19 131/78 11/19/18 17:15 37.8 C H 103 H 16 130/77 11/19/18 17:05 94 H 18 145/85 H 11/19/18 16:50 36.9 C 92 H 16 137/79 11/19/18 16:40 90 17 139/80 11/19/18 16:30 85 14 151/79 H 11/19/18 16:23 36.8 C 96 H 16 153/83 H 11/19/18 14:40 105 H 26 H 139/89 11/19/18 13:21 102 H 18 149/83 H 11/19/18 12:30 101 H 18 142/84 H 11/19/18 11:30 95 H 20 136/86 11/19/18 11:18 11/19/18 10:44 36.3 C L 18 146/88 H Pulse Ox 11/20/18 07:44 97 11/20/18 02:16 96 11/19/18 23:08 96 11/19/18 20:35 95 11/19/18 19:15 95 11/19/18 17:45 95 11/19/18 17:15 94 11/19/18 17:05 98 11/19/18 16:50 99 11/19/18 16:40 100 11/19/18 16:30 100 11/19/18 16:23 100 11/19/18 14:40 97 11/19/18 13:21 96 11/19/18 12:30 97 11/19/18 11:30 100 11/19/18 11:18 98 11/19/18 10:44 97
[2018-11-20] MEDS: SODIUM CHLORIDE 0.9% 1000ML 1,000 ML IV SCH ×2 (08:48→20:27)
[2018-11-20] MEDS: DOCUSATE SODIUM/SENNA 50/8.6MG TAB PO SCH ×2 (08:49→20:23)
[2018-11-20] MEDS: HEPARIN SOD 5,000 UNIT/0.5 ML VIAL SQ SCH ×2 (08:50→21:07)
[2018-11-20] MEDS: INSULIN ASPART 100 UNITS/ML 3 ML PEN SC SCH ×4 (08:50→21:08)
--- NOTE | 2018-11-20 11:30 | Anesthesiology Progress Note ---
Date of Service November 20, 2018 Anesthesia Post Procedure Vital Signs Vital Signs: Temp Pulse Pulse Pulse Resp BP BP 11/20/18 07:44 36.6 C 58 L 18 103/68 11/20/18 02:16 37.2 C 66 16 108/71 11/19/18 23:08 36.6 C 82 16 98/58 L 11/19/18 20:35 36.4 C L 93 H 19 124/82 11/19/18 19:15 37.2 C 91 H 16 125/78 11/19/18 17:45 97 H 19 131/78 11/19/18 17:15 37.8 C H 103 H 16 130/77 11/19/18 17:05 94 H 18 145/85 H 11/19/18 16:50 36.9 C 92 H 16 137/79 11/19/18 16:40 90 17 139/80 11/19/18 16:30 85 14 151/79 H 11/19/18 16:23 36.8 C 96 H 16 153/83 H 11/19/18 14:40 105 H 26 H 139/89 11/19/18 13:21 102 H 18 149/83 H 11/19/18 12:30 101 H 18 142/84 H 11/19/18 11:30 95 H 20 136/86 Pulse Ox 11/20/18 07:44 97 11/20/18 02:16 96 11/19/18 23:08 96 11/19/18 20:35 95 11/19/18 19:15 95 11/19/18 17:45 95 11/19/18 17:15 94 11/19/18 17:05 98 11/19/18 16:50 99 11/19/18 16:40 100 11/19/18 16:30 100 11/19/18 16:23 100 11/19/18 14:40 97 11/19/18 13:21 96 11/19/18 12:30 97 11/19/18 11:30 100 Pain Intensity Bilateral Upper Abdomen: Pain Intensity: 5 Abdomen: Pain Intensity: 4 Notes Mental Status: alert / awake / arousable and participated in evaluation Patient Amnestic to Procedure: Yes Nausea / Vomiting: adequately controlled Pain: adequately controlled Airway Patency, RR, SpO2: stable & adequate BP & HR: stable & adequate Hydration State: stable & adequate Anesthetic Complications: no major complications apparent and Pt Satisfied with anesthetic care
--- NOTE | 2018-11-20 18:55 | Hospitalist Progress Note ---
Date of Service November 20, 2018 Assessment & Plan (1) Epigastric pain: Acute Gangrenous Cholecystitis S/P Lap Estefania POD #1 Appreciate Surgery help Pain control Tolerating diet Received Abx +flatus Continue IV fluids (2) Cholecystitis: Management as above (3) Hyperglycemia: H/O prediabetes-- Diet controlled Hb: A1C: 6.6 Newly diagnosed DM II Continue NovoLog sliding scale insulin Diabetic education (4) DVT prophylaxis: Heparin SQ Subjective Patient is seen and examined at bedside Doing well today Tolerating diet Abd pain is controlled Family at bedside Denies chest pain, dyspnea, dizziness, nausea +flatus No other comaplaints Physical Exam 2 Vital Signs (Past 24 Hours): Last Vital Signs Temp 36.5 C 11/20/18 15:40 Pulse 84 11/20/18 15:40 Resp 17 11/20/18 15:40 BP 120/75 11/20/18 15:40 Pulse Ox 95 11/20/18 15:40 Physical Exam: Physical Exam: Vitals signs as noted above General Appearance:Moderately built and nourished, no apparent distress Head: normocephalic, Atraumatic Eyes: normal inspection, EOMI Neck: supple, Trachea midline Respiratory/Chest: Normal breath sounds, CTA Cardiovascular: S1, S2, No murmur Abdomen/GI:Soft, Non tender, Bowel sounds present, No bleeding/drainage at surgical site Extremities/Musculoskelatal:normal inspection, no edema Neurologic/Psych:AAOX3, grossly no focal neurological deficits Skin: normal color, warm Results & Data Laboratory Results Short CBC 11/20/18 Range/Units 05:38 WBC 10.11 (4.8-10.8) K/uL Hgb 12.0 L D (14.0-18.0) g/dL Hct 36.3 L (42-52) % Plt Count 209 (130-400) K/uL BMP 11/20/18 05:38 Sodium 137 Potassium 4.2 Chloride 103 Carbon Dioxide 28 BUN 13 Creatinine 0.98 Glucose 119 H Calcium 8.0 L D Liver Function 11/20/18 Range/Units 05:38 Total Bilirubin 0.7 (0.2-1) mg/dl Direct Bilirubin 0.2 (0-0.2) mg/dl AST 26 (15-37) U/L ALT 42 (12-78) U/L Alkaline Phosphatase 56 (45-117) U/L Albumin 3.2 L (3.4-5.0) gm/dl
[2018-11-21 06:29] LABS: Basophils # (auto) 0.03 K/uL (0-0.2); Basophils % (auto) 0.3 %; Eosinophils # (auto) 0.06 K/uL (0-0.5); Eosinophils % (auto) 0.7 %; Hematocrit (blood only) 38.6 % (42-52); Hemoglobin 12.9 g/dL (14.0-18.0); Immature Granulocytes # (auto) 0.01 K/uL (0.00-0.02); Immature Granulocytes % (auto) 0.1 %; Lymphocytes # (auto) 2.01 K/uL (1.2-3.4); Lymphocytes % (auto) 22.3 %; Mean Corpuscular Hgb Conc 33.4 g/dL (32-36); Mean Corpuscular Volume 91.5 fL (80-100); Mean Platelet Volume 9.4 fL (7.4-10.4); Monocytes # (auto) 0.67 K/uL (0.11-0.59); Monocytes % (auto) 7.4 %; Neutrophils # (auto) 6.22 K/uL (1.4-6.5); Neutrophils % (auto) 69.2 %; Platelet Count 251 K/uL (130-400); RDW Standard Deviation 43.4 fL (36.4-46.3); Red Blood Count 4.22 M/uL (4.7-6.1)
[2018-11-21 07:04] LABS: BUN Creatinine Ratio 13.5 (10-20); Calcium 8.7 mg/dl (8.5-10.1); Est GFR (African American) 87.1; Est GFR (Non-African American) 75.2; Potassium 3.6 mmol/L (3.5-5.1)
[2018-11-21] MEDS: INSULIN ASPART 100 UNITS/ML 3 ML PEN SC SCH ×2 (09:40→13:27)
[2018-11-21] MEDS: HEPARIN SOD 5,000 UNIT/0.5 ML VIAL SQ SCH (09:42)
[2018-11-21] MEDS: DOCUSATE SODIUM/SENNA 50/8.6MG TAB PO SCH (09:43)
--- NOTE | 2018-11-21 12:11 | Discharge Summary ---
Date of Service November 21, 2018 Admission HPI Per Admitting Provider Attending: Dr. Pete This is a 63-year-old male who follows with Dr. Fleming who has no significant past medical history. He was a one-time diagnosed with prediabetes but this is been diet controlled and he takes no medication for this at all. 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 He has no pulmonary or cardiac history. He has no prior hospitalizations. He does have a history of melanoma which is followed by dermatology and is currently in remission. He is a lifelong non-smoker and consumes no alcohol. The patient reports that he had epigastric pain last night around midnight. He had one episode of nausea and vomiting which was self-limited. This morning the pain persisted so he had his nephew drive him to the emergency department. CT scan of the abdomen and pelvis shows an acute cholecystitis and stool throughout the colon. Patient does report that he has a bowel movement at least daily around 9 or 930 each morning without any bowel regimen. He often will have a second bowel movement later in the day. He has never had bowel obstruction or other comorbid disease. He has no other acute complaints today other than abdominal pain. Blood pressure is slightly elevated with systolic pressure of 140 and heart rate is slightly elevated at 103. This is most likely secondary to pain as blood pressure is typically around 111 systolically at the doctor's office. Patient has no chest pain or shortness of breath and no other problems. Admission Exam Per Admitting Provider GENERAL : No acute distress EYES: No icterus, gaze conjugate. Pupils equal and reactive to light NOSE: No evidence of epistaxis MOUTH: No lesions or candidiasis NECK: Supple. LUNGS: CTA B/L, no wheezes, rales or rhonchi HEART: Regular, rate controlled. No appreciation of murmur or ectopy. ABDOMEN: Soft, ND, BS Present. Rebound tenderness particularly in the right upper quadrant. EXTREMITIES: No LE edema, pedal pulses intact NEURO: A&OX3 Principal Diagnosis Discharge Information Discharge Diagnosis acute necrotizing cholecystitis Discharge Goals Decrease discomfort,Improve disease control, Improve function Discharge Activity Limitations As commented below Discharge Data Allergies Allergy/AdvReac Type Severity Reaction Status Date / Time Penicillins Allergy RASH Unverified 11/19/18 11:15 Consultations 11/19/18 12:29 ED Decision to Admit Stat 11/19/18 17:28 Consult General Surgery Routine Procedures Performed Operation Date: 11/19/18 14:30 Actual Procedures p Laparoscopic Cholecystectomy(Not Applicable) - Ramses Marshall MD, FACS CT ABD: 1. Distended gallbladder with trace pericholecystic fluid. This is nonspecific but could represent acute cholecystitis or underlying hepatic pathology. Clinical correlation recommended as well as correlation with LFTs. 2. No bowel wall thickening or obstruction. 3. Normal appendix. 4. Mild bladder wall thickening. This is likely due to underdistention. Recommend correlation with urinalysis. CXR: No acute process. Ordered Studies 11/19/18 10:56 CT abd pelvis IV con only Stat Hospital Course (1) Gangrenous cholecystitis: Acute Gangrenous Cholecystitis S/P Lap Estefania POD #2 Appreciate Surgery help Pain control Tolerating diet Continue Abx +flatus Received IV fluids Newly diagnosed DM II H/O prediabetes Hb A1C: 6.6 Patient prefers no meds currently and wants to control with diet Continue NovoLog sliding scale insulin while hospitalized Diabetic education Advised to follow up with PCP DVT prophylaxis: Heparin SQ Total Time Total Time Spent Total Time Spent (In Minutes): 37 minutes Total Time Includes: Examination of the Patient, Discharge Planning, Medication Reconciliation, Communication With Other Providers and Other Discharge Plan Discharge Items Patient Disposition: Home - Self-Care Reason For Visit: ABDOMINAL PAIN Discharge Diagnosis: acute necrotizing cholecystitis Discharge Goals: Decrease discomfort, Improve disease control and Improve function Activity: As commented below Activity Comment: light activity for 3 weeks Lifting: No more than 25 pounds Bathing Comment: may shower Sexual Activity: When tolerated Exercise Comment: wait 3 weeks Driving/Machine Use: Resume 3 days after discharge Non-emergency contact: Primary Care Provider and Surgeon Call non-emergency contact if: your pain is not controlled, your temperature is above 101 and your wound has increased drainage Follow-up/Referrals: Casey Richardson [Primary Care Provider] - Diet: Carb Consistent or DM2 Addtl Provider Instructions: Follow up with your PCP on 11/24/18 at 12:25pm Follow up with your Surgeon as advised Complete the antibiotic course as prescribed Seek immediate medical attention if your symptoms reoccur or worsen SPECIAL CARE INSTRUCTIONS: * Cover incisions and change daily for comfort/drainage. may leave uncovered with dermabond * * * Avoid constipation - * May Use Senokot S and Milk of Magnesium twice daily as directed on the package * * May use ibuprofen for pain as tolerated. * Expect some swelling and bruising. Call your doctor if: * Temperature above 101 degrees * Pain not relieved by pain medicine ordered * There is increased drainage or redness from any incision * You have any unanswered questions or concerns [phone]. FOLLOW UP VISIT: If not already scheduled, please call the office for a follow-up visit. OFFICE PHONE NUMBER: Dr. Marshall Office for 2 weeks- check up Prescriptions: New hydrocodone-acetaminophen [[place]] 5-325 mg tablet 1 - 2 tab PO Q6H Qty: 30 RF: 0 ciprofloxacin HCl [Cipro] 500 mg tablet 500 mg PO BID Qty: 10 RF: 0 Continue fluorouracil [Efudex] 5 % Cream 1 applic TOPICAL BID RF: 0 Visit Report Forms: [employer] Portal Stand-Alone Forms: Call Back Authorization, [employer] Discharge Orders: Discharge Order (Routine); Ordered 11/21/18 Ordered By: Ramses Marshall Admission Data Admit Date/Time: 11/19/18 17:22 Attending Provider: Ramses Marshall Admit Provider: Vidal Pete Primary Care Provider: Casey Richardson Other Providers: Ramses Marshall ; Vidal Pete Service: Medical Other Interventions: Discharge Summary Assessment (RN) Last Done: 11/21/18 10:57 Pending Studies at Discharge: No
--- NOTE | 2018-11-21 12:11 | Hospitalist Progress Note ---
Date of Service November 21, 2018 Assessment & Plan (1) Gangrenous cholecystitis: Acute Gangrenous Cholecystitis S/P Lap Estefania POD #2 Appreciate Surgery help Pain control Tolerating diet Continue Abx +flatus Received IV fluids Newly diagnosed DM II H/O prediabetes Hb A1C: 6.6 Patient prefers no meds currently and wants to control with diet Continue NovoLog sliding scale insulin while hospitalized Diabetic education Advised to follow up with PCP DVT prophylaxis: Heparin SQ Subjective Patient is seen and examined at bedside Abd pain is well controlled Tolerated diet Family at bedside Denies chest pain, dyspnea, dizziness, nausea +flatus No other complaints Physical Exam 2 Vital Signs (Past 24 Hours): Last Vital Signs Temp 37.4 C 11/21/18 11:23 Pulse 79 11/21/18 11:23 Resp 16 11/21/18 11:23 BP 129/71 11/21/18 11:23 Pulse Ox 96 11/21/18 11:23 Physical Exam: Physical Exam: Vitals signs as noted above General Appearance:Moderately built and nourished, no apparent distress Head: normocephalic, Atraumatic Eyes: normal inspection, EOMI Neck: supple, Trachea midline Respiratory/Chest: Normal breath sounds, CTA Cardiovascular: S1, S2, No murmur Abdomen/GI:Soft, Non tender, Bowel sounds present, No bleeding/drainage at surgical site Extremities/Musculoskelatal:normal inspection, no edema Neurologic/Psych:AAOX3, grossly no focal neurological deficits Skin: normal color, warm Results & Data Laboratory Results Short CBC 11/21/18 Range/Units 06:08 WBC 9.00 (4.8-10.8) K/uL Hgb 12.9 L (14.0-18.0) g/dL Hct 38.6 L (42-52) % Plt Count 251 (130-400) K/uL BMP 11/21/18 06:08 Sodium 137 Potassium 3.6 Chloride 102 Carbon Dioxide 26 BUN 14 Creatinine 1.05 Glucose 118 H Calcium 8.7
== END 2018-11-21 13:45 | disposition home or self-care (01) | DRG 418 ==
LOC: ED 10:42 → OR 14:40 → 3W 14:40